=== PATIENT | female | born 1960 | race Caucasian/White ===

== ENCOUNTER 2018-08-25 09:49 | Emergency (ER) | payer OTHER ==
[~2018-08-25] VITALS: Ht 154.9 cm; Wt 75.0 kg
[2018-08-25 10:04] VITALS: Ht 154.9 cm; Wt 75.0 kg
[2018-08-25] MEDS ORDERED: LEVOCETIRIZINE PO (10:09)
[2018-08-25] MEDS ORDERED: NALTREXONE HCL50 MG PO (10:10)
[2018-08-25] MEDS ORDERED: ALDACTONE50 MG PO (10:11)
[2018-08-25] MEDS ORDERED: SOMA350 MG PO (10:12)
[2018-08-25] MEDS ORDERED: BUTALB-APAP-CA1 EACH (10:12)
[2018-08-25 12:26] VITALS: BP 128/068
== END 2018-08-25 12:27 | disposition home or self-care (01) ==
LOC: D.ER 09:49
DX: S69.92XA Unspecified injury of left wrist, hand and finger(s), initial encounter (principal); X58.XXXA Exposure to other specified factors, initial encounter; Y93.89 Activity, other specified; Y92.019 Unspecified place in single-family (private) house as the place of occurrence of the external cause; S63.92XA Sprain of unspecified part of left wrist and hand, initial encounter; S66.912A Strain of unspecified muscle, fascia and tendon at wrist and hand level, left hand, initial encounter; M32.9 Systemic lupus erythematosus, unspecified